=== PATIENT | female | born 1975 | race Caucasian/White ===

== ENCOUNTER 2020-07-26 11:37 | Emergency (ER) | payer OTHER ==
[2020-07-26 11:50] VITALS: BP 117/76; PULSE 86; TEMP 98.4; BMI 30.1
--- OUTSIDE RECORDS SUMMARY | 2020-07-26 12:14 | XMS ---
:1975 Author Organization [facility] Name Relationship Address Phone UE Unavailable Unavailable Unavailable RENU GALEANO SON [address] [place] [address] Re-disclosure Warning The records that you are about to access may contain information from federally- assisted alcohol or drug abuse programs. If such information is present, then the following federally mandated warning applies: This information has been disclosed to you from records protected by federal confidentiality rules (42 CFR part 2). The federal rules prohibit you from making any further disclosure of this information unless further disclosure is expressly permitted by the written consent of the person to whom it pertains or as otherwise permitted by 42 CFR part 2. A general authorization for the release of medical or other information is NOT sufficient for this purpose. The Federal rules restrict any use of the information to criminally investigate or prosecute any alcohol or drug abuse patient.The records that you are about to access may contain highly sensitive health information, the redisclosure of which is protected by Article 27-F of the [facility] Public Health law. If you continue you may haveaccess to information: Regarding HIV / AIDS; Provided by facilities licensed or operated by the [facility] Office of Mental Health; or Provided by the [facility] Office for People With Developmental Disabilities. If such information is present, then the following [facility] mandated warning applies: This information has been disclosed to you from confidential records which are protected by state law. State law prohibits you from making any further disclosure of this information without the specific written consent of the person to whom it pertains, or as otherwise permitted by law. Any unauthorized further disclosure in violation of state law may result in a fine or senior care sentence or both. A general authorization for the release of medical or other information is NOT sufficient authorization for further disclosure. Insurance Providers Payer name Policy type Policy ID Covered Covered constitution party's Policy P brice / Coverage constitution party ID relationship to Hu Inf ormation type hu SHADY [id number] ESSENTIAL PLAN 3 4
[2020-07-26] MEDS ORDERED: KETOROLAC TROMETHAMINE 30 MG/1 ML VIAL IM ONE (12:22)
[2020-07-26] MEDS ORDERED: METHOCARBAMOL 500 MG TABLET PO ONE (12:23)
--- NOTE | 2020-07-26 12:27 | PDOC ---
History of Present Illness - General Chief Complaint: Pain, Acute Stated Complaint: LFT SIDE NECK AND SHOULDER PAIN Time Seen by Provider: 07/26/20 12:04 History Source: Patient Exam Limitations: No Limitations - History of Present Illness Initial Comments: 07/26/20 12:23 HISTORY OF PRESENT ILLNESS: 44-year-old male past medical history of hypertension presents emergency department for evaluation of left shoulder pain radiating from her left neck. She denies any trauma or recent falls. Patient states she woke up feeling the pain in her shoulder 7 days ago. Patient reports decreased range of motion and has had minimal relief from [id number]-[id number] pain medications. She reports the pain worsens with articulation of the shoulder especially abduction. No recent travel or sick contacts. PAST MEDICAL HISTORY: See HPI SURGICAL HISTORY: Denies ALLERGIES: No known drug allergies REVIEW OF SYSTEMS General/Constitutional: Denies fever or chills. Denies weakness, weight change. HEENT: Denies change in vision. Denies ear pain or discharge. Denies sore throat. Cardiovascular: Denies chest pain or shortness of breath. Respiratory: Denies cough, wheezing, or hemoptysis. Gastrointestinal: Denies nausea, vomiting, diarrhea or constipation. Denies rectal bleeding. Genitourinary: Denies dysuria, frequency, or change in urination. Musculoskeletal: See HPI Skin and breasts: Denies rash or easy bruising. Neurologic: Denies headache, vertigo, loss of consciousness, or loss of sensation. Psychiatric: Denies depression or anxiety. Endocrine: Denies increased thirst. Denies abnormal weight change. Hematologic/Lymphatic: Denies anemia, easy bleeding, or history of blood clots. Allergic/Immunologic: Denies hives or skin allergy. Denies latex allergy. PHYSICAL EXAM General Appearance: Well-appearing, appropriately dressed. No apparent distress, no intoxication. HEENT: EOMI, PERRLA, normal ENT inspection, normal voice, TMs normal, pharynx normal. No conjunctival pallor. No photophobia, scleral icterus. Neck: Supple. Trachea midline. No tenderness, rigidity, carotid bruit, stridor, lymphadenopathy, or thyromegaly. Respiratory/Chest: Lungs CTAB. No shortness of breath, chest tenderness, respiratory distress, accessory muscle use. No crackles, rales, rhonchi, stridor, wheezing, dullness Cardiovascular: RRR. S1, S2. No JVD, murmur, bradycardia, tachycardia. Vascular Pulses: Radial (R): 2+, radial (L): 2+ Musculoskeletal/Extremities: Normal inspection. Restricted ROM of all extremities. Normal capillary refill. No tenderness to extremities, pedal edema, swelling, erythema or deformity. Neurovascularly intact. Palpable muscle spasm presents in the left trapezius muscle at the insertion point of the shoulder. Past History - Medical History Allergies/Adverse Reactions: Allergies Allergy/AdvReac Type Severity Reaction Status Date / Time No Known Allergies Allergy Verified 07/26/20 11:47 Home Medications: Ambulatory Orders Methocarbamol [Robaxin -] 1,000 mg PO TID PRN #42 tablet 07/26/20 - Reproductive History Is Patient Now?: No - Psycho-Social/Smoking History Smoking History: Never smoked - Substance Abuse Hx (Audit-C & DAST Scrn) How often the patient has a drink containing alcohol: Never Score: In Men: 4 or > Positive; In Women: 3 or > Positive: 0 Screen Result (Pos requires Nsg. Audit-10AR): Negative *Physical Exam - Vital Signs Last Vital Signs Temp Pulse Resp BP Pulse Ox 98.4 F 86 18 117/76 100 07/26/20 11:47 07/26/20 11:47 07/26/20 11:47 07/26/20 11:47 07/26/20 11:47 ED Treatment Course - RADIOLOGY Radiology Studies Ordered: Category Date Time Status SHOULDER-LEFT [RAD] Stat Radiology 07/26/20 12:22 Ordered Medical Decision Making - Medical Decision Making 07/26/20 12:25 A/P: 44-year-old woman with atraumatic left shoulder pain for 1 week not relieved with xbyl-hpk-khceclz pain medications Muscle spasm present in the left trapezius muscle X-rays of left shoulder Toradol 30 mg IM Robaxin 1 g orally Reassess Anticipate discharge with orthopedic follow-up 07/26/20 13:04 X-rays read by me: No acute fractures or dislocations are present. Thin radiopaque elongated object present. Patient's brassiere has a piece of metal approximately same size and shape as radiopaque foreign body noted. Discharge home with orthopedic follow-up I discussed the physical exam findings, ancillary test results and final diagnoses with the patient. I answered all of the patient's questions. The patient was satisfied with the care received and felt comfortable with the discharge plan and treatment plan. The patient will call their primary care physician within 24 hours to arrange follow-up and will return to the Emergency Department with any new, persistent or worsening symptoms. Portions of this note have been documented using voice recognition software. As a result, errors may occur in the commercial teller process. Effort has been made to correct all grammatical and commercial teller error, but some may have been missed which may produce sporadic inaccurate commercial teller or nonsensical phrases. Discharge - Discharge Information Problems reviewed: Yes Clinical Impression/Diagnosis: Muscle spasm of left shoulder area Condition: Stable Disposition: HOME - Admission No - Additional Discharge Information Prescriptions: Methocarbamol [Robaxin -] 1,000 mg PO TID PRN #42 tablet PRN Reason: Muscle Spasms - Follow up/Referral Referrals: Dani Galvan DO [Staff Physician] - - Patient Discharge Instructions Additional Instructions: Rest, no heavy lifting or exercise until pain is resolved Hot soaks to neck and low back as often as possible/hot showers or Jacuzzis No massage or therapy until spasm is gone Continue naproxen 2-220 mg tablets every 12 hours for the next 3 days then as needed for pain and swelling Robaxin 1500mg every 8 hours as needed for spasm If not significant improvement within 24 hours with medication and rest regime, followup with private physician for change in medications and /or therapy. Descansar, no levantar objetos pesados o hacer ejercicio hasta que se resuelva el dolor Remoja caliente al estrella y la espalda baja yanez a menudo eileen sea posible / duchas calientes o jacuzzis Sin masaje ni terapia hasta que el espasmo se haya natalie Continuar naproxeno 2-220 mg comprimidos cada 12 horas gómez los prximos 3 mello entonces segn sea necesario para el dolor y la hinchazn Robaxin 1500mg cada 8 horas segn sea necesario para el espasmo Si no mejora significativa dentro de las 24 horas con la medicacin y el rgimen de descanso, seguimiento con el mdico privado para el cambio en los m edicamentos y / o terapia. - Post Discharge Activity Work/Back to School Note: Back to Work
[2020-07-26] MEDS ORDERED: KETOROLAC TROMETHAMINE 30 MG/1 ML VIAL ONE (12:28)
[2020-07-26] MEDS ORDERED: METHOCARBAMOL 500 MG TABLET ONE (12:28)
== END 2020-07-26 13:10 | disposition home or self-care (01) ==
LOC: JERFT 11:37
PROC: 3E0233Z Introduction of Anti-inflammatory into Muscle, Percutaneous Approach (ICD-10-PCS; principal; 2020-07-26)
DX: M62.838 Other muscle spasm (principal)
CPT/HCPCS: 73030-TC-LT-FY; 99284-25

== ENCOUNTER 2022-10-09 10:41 | Emergency (ER) | payer OTHER ==
[2022-10-09 10:49] VITALS: BP 120/72; PULSE 84; RESP 18; TEMP 98.8; BMI 29.2
== END 2022-10-09 13:01 | disposition home or self-care (01) ==
LOC: JER 10:41
DX: J06.9 Acute upper respiratory infection, unspecified (principal)
CPT/HCPCS: 0241U-QW; 71046-TC-FY; 99284-25

== ENCOUNTER 2022-10-15 17:35 | Emergency (ER) | payer OTHER ==
[2022-10-15 17:58] VITALS: BP 113/76; PULSE 95; RESP 18; TEMP 98.1; BMI 32.5
[2022-10-15] MEDS ORDERED: KETOROLAC TROMETHAMINE 30 MG/1 ML VIAL IM ONE (19:33)
[2022-10-15] MEDS ORDERED: KETOROLAC TROMETHAMINE 30 MG/1 ML VIAL ONE (19:36)
== END 2022-10-15 19:42 | disposition home or self-care (01) ==
LOC: JERFT 17:35 → JER 17:35 → JERFT 19:42
PROC: 3E023GC Introduction of Other Therapeutic Substance into Muscle, Percutaneous Approach (ICD-10-PCS; principal; 2022-10-15)
DX: M54.42 Lumbago with sciatica, left side (principal)
CPT/HCPCS: 99284-25

== ENCOUNTER 2023-08-02 11:46 | Emergency (ER) | payer OTHER ==
[2023-08-02 11:51] VITALS: BP 103/75; PULSE 108; RESP 18; TEMP 98; BMI 32.9
[2023-08-02] MEDS ORDERED: ACETAMINOPHEN 500 MG TABLET (FP) PO ONE (13:08)
[2023-08-02] MEDS ORDERED: IBUPROFEN 600 MG TABLET (FP) PO ONE ×2 (13:08→13:28)
[2023-08-02] MEDS ORDERED: ALBUTEROL SO4 2.5/IPRATROPIUM 0.5 INH SOL 3 ML VIAL.NEB. NEB ONE ×2 (13:08→13:28)
[2023-08-02 13:28] LABS: BASO % 0.9 % (0-2.0); EOS % 0.9 % (0-4.5); HEMATOCRIT 38.5 % (32.4-45.2); LYMPH % 43.4 % (8-40); MCHC 33.8 g/dl (32.0-36.0); MEAN CELL VOLUME 82.8 fl (80-96); MEAN PLT VOLUME 8.5 fl (7.5-11.1); MONO % 9.1 % (3.8-10.2); NEUT % 45.7 % (42.8-82.8); PLATELET COUNT 300 10^3/uL (134-434); RBC 4.65 M/mm3 (3.60-5.2); RDW 14.9 % (11.6-15.6); WHITE BLOOD COUNT 4.4 K/mm3 (4.0-10.0)
[2023-08-02] MEDS ORDERED: ACETAMINOPHEN 325 MG TABLET (FP) ONE (13:29)
[2023-08-02 13:53] LABS: POTASSIUM 3.8 mmol/L (3.5-5.1)
[2023-08-02 13:55] LABS: BLOOD UREA NITROGEN 10.5 mg/dL (7-18)
[2023-08-02 13:58] LABS: CALCIUM 8.1 mg/dL (8.5-10.1); CREATININE 0.6 mg/dL (0.55-1.3)
== END 2023-08-02 14:57 | disposition home or self-care (01) ==
LOC: JERFT 11:46 → JER 11:46 → JERFT 14:57
PROC: 3E0F7GC Introduction of Other Therapeutic Substance into Respiratory Tract, Via Natural or Artificial Opening (ICD-10-PCS; principal; 2023-08-02)
DX: R51.9 Headache, unspecified (principal); R50.9 Fever, unspecified; R05.9 Cough, unspecified; R06.02 Shortness of breath; M54.6 Pain in thoracic spine; R09.81 Nasal congestion; M79.10 Myalgia, unspecified site; U07.1 COVID-19; J10.1 Influenza due to other identified influenza virus with other respiratory manifestations
CPT/HCPCS: 0241U-QW; 36415; 71046-TC-FY; 80048; 85025; 99284-25

== ENCOUNTER 2024-02-17 18:18 | Emergency (ER) | payer OTHER ==
[2024-02-17 18:31] VITALS: BP 116/73; PULSE 84; RESP 18; TEMP 98; BMI 70.5
[2024-02-17] MEDS ORDERED: predniSONE 20 MG TABLET (UD) ONE (18:55)
[2024-02-17] MEDS ORDERED: LIDOCAINE 4% PATCH TP ONE (18:55)
[2024-02-17] MEDS ORDERED: KETOROLAC TROMETHAMINE 30 MG/1 ML VIAL ONE (18:55)
[2024-02-17] MEDS: KETOROLAC TROMETHAMINE 30 MG/1 ML VIAL IM ONE (19:03)
[2024-02-17] MEDS: predniSONE 20 MG TABLET (UD) PO ONE (19:03)
[2024-02-17] MEDS: LIDOCAINE 5% TOPICAL PATCH TP ONE (19:03)
[2024-02-17] MEDS: LIDOCAINE 4% PATCH TP ONE (19:07)
[2024-02-17] MEDS ORDERED: LIDOCAINE PATCH REMOVAL MC SCH (22:00)
[2024-02-18] MEDS ORDERED: LIDOCAINE PATCH REMOVAL MC SCH (07:00)
== END 2024-02-17 20:20 | disposition home or self-care (01) ==
LOC: JER 18:18 → JERFT 18:18
PROC: 3E023GC Introduction of Other Therapeutic Substance into Muscle, Percutaneous Approach (ICD-10-PCS; principal; 2024-02-17)
DX: M54.50 Low back pain, unspecified (principal); X50.0XXA Overexertion from strenuous movement or load, initial encounter
CPT/HCPCS: 99284-25

== ENCOUNTER 2024-06-27 14:12 | Emergency (ER) | payer OTHER ==
[2024-06-27 14:32] VITALS: BP 116/77; PULSE 88; RESP 20; TEMP 98.9; BMI 32.9
[2024-06-27] MEDS ORDERED: KETOROLAC TROMETHAMINE 30 MG/1 ML VIAL ONE (15:08)
[2024-06-27] MEDS ORDERED: ACETAMINOPHEN 500 MG TABLET (FP) ONE (15:08)
[2024-06-27] MEDS ORDERED: LIDOCAINE 4% PATCH TP ONE (15:08)
[2024-06-27] MEDS: ACETAMINOPHEN 500 MG TABLET (FP) PO ONE (15:21)
[2024-06-27] MEDS: LIDOCAINE 4% PATCH TP ONE (15:21)
[2024-06-27] MEDS: KETOROLAC TROMETHAMINE 30 MG/1 ML VIAL IM ONE (15:21)
[2024-06-27] MEDS ORDERED: LIDOCAINE PATCH REMOVAL MC SCH (22:00)
== END 2024-06-27 16:21 | disposition home or self-care (01) ==
LOC: JERFT 14:12
PROC: 3E0233Z Introduction of Anti-inflammatory into Muscle, Percutaneous Approach (ICD-10-PCS; principal; 2024-06-27)
DX: M54.50 Low back pain, unspecified (principal); G89.29 Other chronic pain
CPT/HCPCS: 72100-TC-FY; 99284-25

== ENCOUNTER 2024-06-30 12:18 | Emergency (ER) | payer OTHER ==
[2024-06-30 12:43] VITALS: BP 146/93; PULSE 83; RESP 18; TEMP 98.6; BMI 37.5
[2024-06-30] MEDS ORDERED: KETOROLAC TROMETHAMINE 30 MG/1 ML VIAL ONE (14:05)
[2024-06-30] MEDS ORDERED: LIDOCAINE 4% PATCH TP ONE (14:05)
[2024-06-30] MEDS: LIDOCAINE 4% PATCH TP ONE (14:10)
[2024-06-30] MEDS: KETOROLAC TROMETHAMINE 30 MG/1 ML VIAL IM ONE (14:10)
[2024-06-30] MEDS ORDERED: METHOCARBAMOL 500 MG TABLET ONE (14:11)
[2024-06-30] MEDS: METHOCARBAMOL 500 MG TABLET PO ONE (14:19)
[2024-06-30 16:44] LABS: URINE APPEARANCE CLEAR; URINE BILIRUBIN NEGATIVE (NEGATIVE); URINE COLOR YELLOW; URINE GLUCOSE (UA) NEGATIVE (NEGATIVE); URINE KETONE NEGATIVE (NEGATIVE); URINE LEUK ESTERASE NEGATIVE (NEGATIVE); URINE NITRITE NEGATIVE (NEGATIVE); URINE PROTEIN NEGATIVE (NEGATIVE); URINE UROBILINOGEN 0.2 mg/dL (0.2-1.0)
[2024-06-30 16:52] LABS: BASO % 0.7 % (0-2.0); EOS % 1.9 % (0-4.5); HEMATOCRIT 35.5 % (32.4-45.2); HEMOGLOBIN 11.4 GM/dL (10.7-15.3); MCH 26.3 pg (25.7-33.7); MCHC 32.2 g/dl (32.0-36.0); MEAN CELL VOLUME 81.6 fl (80-96); MEAN PLT VOLUME 8.2 fl (7.5-11.1); MONO % 5.3 % (3.8-10.2); NEUT % 68.1 % (42.8-82.8); PLATELET COUNT 295 10^3/uL (134-434); RBC 4.34 M/mm3 (3.60-5.2); RDW 17.1 % (11.6-15.6); WHITE BLOOD COUNT 11.5 K/mm3 (4.0-10.0)
[2024-06-30] MEDS ORDERED: methylPREDNISolone 4 MG TABLET PO ONE (17:11)
[2024-06-30 17:21] LABS: CALCIUM 8.8 mg/dL (8.5-10.1)
[2024-06-30 17:22] LABS: ALBUMIN 3.3 g/dl (3.4-5.0); BLOOD UREA NITROGEN 12.3 mg/dL (7-18)
[2024-06-30 17:25] LABS: CREATININE 0.7 mg/dL (0.55-1.3)
[2024-06-30 17:27] LABS: BILIRUBIN,TOTAL 0.9 mg/dL (0.2-1); TOT PROT 7.4 g/dl (6.4-8.2)
[2024-06-30] MEDS ORDERED: LIDOCAINE PATCH REMOVAL MC ONE (22:00)
== END 2024-06-30 17:51 | disposition home or self-care (01) ==
LOC: JER 12:18
PROC: 3E0233Z Introduction of Anti-inflammatory into Muscle, Percutaneous Approach (ICD-10-PCS; principal; 2024-06-30)
DX: M54.50 Low back pain, unspecified (principal)
CPT/HCPCS: 36415; 72131-TC; 80053; 81003; 85025; 87086; 99284-25

== ENCOUNTER 2024-07-15 04:32 | Day surgery (SDC) | payer OTHER ==
[2024-07-07 10:14] VITALS: BMI 32.9
[2024-07-15] MEDS ORDERED: LIDOCAINE HCL/PF 1% SDV 5ML VIAL ONE ×2 (07:23→10:24)
[2024-07-15] MEDS ORDERED: DEXAMETHASONE SOD PHOSPHATE 10 MG/1 ML VIAL ONE (07:23)
[2024-07-15] MEDS: DEXAMETHASONE SOD PHOSPHATE 10 MG/1 ML VIAL IVPUSH ONE ×2 (10:27)
[2024-07-15] MEDS: LIDOCAINE HCL 1% PRESERVATIVE FREE - 30ML VIAL IJ ONE ×2 (10:27)
[2024-07-15] MEDS: IOHEXOL 180 MG/1 ML ML IJ ONE ×2 (10:28)
[2024-07-15] MEDS ORDERED: ACETAMINOPHEN 500 MG TABLET (FP) ONE (10:41)
[2024-07-15] MEDS: ACETAMINOPHEN 500 MG TABLET (FP) PO PRN (10:49)
[2024-07-15 10:56] VITALS: RESP 18
[2024-07-15 12:01] VITALS: BP 125/75; PULSE 83; TEMP 97.7
== END 2024-07-15 11:45 | disposition home or self-care (01) ==
LOC: JASU-SURG 04:32
PROVIDERS: ATTEND Pain Medicine Pain Medicine
PROC: 3E0R3BZ Introduction of Anesthetic Agent into Spinal Canal, Percutaneous Approach (ICD-10-PCS; 2024-07-15)
PROC: 3E0R33Z Introduction of Anti-inflammatory into Spinal Canal, Percutaneous Approach (ICD-10-PCS; principal; 2024-07-15 10:15)
DX: M54.16 Radiculopathy, lumbar region (principal)
CPT/HCPCS: 76000-TC-FY; 81025; J1100